=== PATIENT | female | born 1970 | race Caucasian/White ===

== ENCOUNTER 2017-10-06 06:54 | Day surgery (SDC) | payer OTHER ==
[2017-10-06] VITALS (12 sets, daily range): BP systolic 98–111; BP diastolic 60–71; PULSE 52–72; RESP 12–20; Ht 162.6 cm; Wt 75.3 kg
[~2017-10-06] VITALS: Ht 162.6 cm; Wt 75.3 kg
[2017-10-06] MEDS ORDERED: morphine (1 MG/ML) 10ML SYRINGE IV PRN ×3 (07:00)
[2017-10-06] MEDS ORDERED: DIPHENHYDRAMINE 50 MG INJ IV PRN (07:00)
[2017-10-06] MEDS ORDERED: hydrALAzine 20 MG INJ IV PRN (07:00)
[2017-10-06] MEDS ORDERED: MIDAZOLAM 1 MG/ML 2 ML INJ IV PRN (07:00)
[2017-10-06] MEDS ORDERED: FENTAnyl 50 MCG/ML VIAL IV PRN ×2 (07:00)
[2017-10-06] MEDS ORDERED: ONDANSETRON 4 MG INJ IV PRN ×2 (07:00→10:30)
[2017-10-06] MEDS ORDERED: LABETALOL HCL 20MG INJ IV PRN (07:00)
[2017-10-06] MEDS ORDERED: ATROPINE 1 MG/10 ML SYRINGE IV PRN (07:00)
[2017-10-06] MEDS ORDERED: HYDROmorphONE (0.2 MG/ML) 10ML SYG IV PRN ×3 (07:00)
[2017-10-06] MEDS ORDERED: OXYCODONE/ACETAMINOPHEN (5/325) TAB PO PRN ×2 (07:00)
[2017-10-06] MEDS ORDERED: EPHEDrine SULFATE 50 MG/5 ML SYG IV PRN (07:00)
[2017-10-06] MEDS ORDERED: MEPERIDINE 25 MG INJ IV PRN (07:00)
--- NOTE | 2017-10-06 08:43 | HPN ---
Date/Time of Note Date/Time of Note DATE: 10/06/17 TIME: 08:42 Interval H&P Admission Note Pt. seen H&P reviewed: No system changes POLINA MCKINLEY DO Oct 06, 2017 08:43
[2017-10-06] MEDS ORDERED: GLYCOPYRROLATE 1 MG INJ ONE (08:46)
[2017-10-06] MEDS ORDERED: ROCURONIUM 50 MG INJ ONE (08:46)
[2017-10-06] MEDS ORDERED: LIDOCAINE 2% (SDV) 5 ML INJ ONE (08:46)
[2017-10-06] MEDS ORDERED: PROPOFOL 20 ML ONE (08:47)
[2017-10-06] MEDS ORDERED: NEOSTIGMINE 3 MG/3 ML SYRINGE ONE (08:47)
[2017-10-06] MEDS ORDERED: MIDAZOLAM 1 MG/ML 2 ML INJ ONE (08:47)
[2017-10-06] MEDS ORDERED: FENTAnyl 50 MCG/ML VIAL ONE (08:47)
[2017-10-06] MEDS ORDERED: CEFAZOLIN 2 GM/50 ML (PMX) 50 ML IVPB SCH (09:00)
[2017-10-06] MEDS ORDERED: SUCCINYLCHOLINE CHLORIDE 100 MG/5 ML SYG IV ONE (09:01)
[2017-10-06] MEDS ORDERED: BUPIVACAINE 0.25% (MPF) 30 ML INJ ONE (09:01)
[2017-10-06] MEDS ORDERED: ONDANSETRON 4 MG INJ ONE (09:02)
[2017-10-06] MEDS ORDERED: DEXAMETHASONE 4 MG/ML 1 ML INJ ONE (09:02)
[2017-10-06] MEDS ORDERED: LABETALOL HCL 20MG INJ ONE (09:23)
--- NOTE | 2017-10-06 10:27 | OPR ---
Date/Time of Note Date/Time of Note DATE: 10/06/17 TIME: 10:20 Operative Report Procedure Date: Oct 06, 2017 Preoperative Diagnosis Biliary Colic and Chronic Cholecystitis Postoperative Diagnosis same Operation/Procedure Performed Laparoscopic Cholecystectomy Surgeon Adriana Mckinley DO, FACS [employer] Sm[employer] Pipe n/a Anesthesia Type: general Estimated Blood Loss: 0 - 10 ml's Transfusion none Specimen Gallbladder Grafts/Implants none Tubes/Drains None Complications none Pt Condition Post Procedure: stable Disposition: PACU Indications large gallstone impacted in the gallbladder neck with biliary colic and multiple episodes of cholecystitis previously, having surgery for cholecystectomy INFORMED CONSENT TO LAPAROSCOPIC CHOLECYSTECTOMY: Informed verbal consent obtained. Potential complications of surgery explained to Ondina Betancur including, but not limited to: scar formation, infection, bleeding, chronic pain, possible need for further surgery, recurrence. Ondina Betancur understands and agrees. All questions answered. Ondina Laure Pipe gave consent and desires to proceed with surgery. The usual risks, benefits and alternatives of surgery were discussed including, but not limited to, bowel, billiary, liver injury, infection, bleeding, scar, need for further surgery, allergy to medicines which may or may not have been previously taken, anesthesia, injury to nerves, arteries, veins or other adjacent organs or structures in the operative field, and the possibility of cardiac, pulmonary, GI , , neurologic, vascular, thromboembolic or other systemic complications. All risks versus benefits have been discussed at length allowing ample opportunity for patient to ask all questions and Ondina Betancur indicates they are all answered to his/her satisfaction. All risks and benefits have been discussed at length allowing ample opportunity for Ondina Betancur to ask all questions and [s]he indicated they are all answered to his/her satisfaction. These risks include, but are not limited to the possiblity of bleeding, infection, anesthesia risks, reaction to medications, trauma to the intra-abdominal organs, bowel injury, major vascular injury, conversion to laparoscopic or open surgery, robotic equipment failure or malfunction, inadvertent/unintended injury from instrumentation, including robotic equipment laparoscopic instruments when used, retained or recurrent stones, non-resolution of pain, CBD injury (~0.4% reported in literature), bile leak, DVT, PE, [place], stroke and even . Ondina Betancur appear(s) to understand these risks, and informed consent is confirmed Procedure Description PROCEDURE IN DETAIL: After informed consent was obtained and again verified with the patient, a time out procedure was performed. Antibiotics were given. Under general anesthesia, in supine position, Ondina Betancur's abdomen was prepped and draped in the usual sterile fashion. The skin was infiltrated with local anesthesia and an incision was made at the umbilicus. The fascia was retracted up with a clamp. Veress needle was placed into the peritoneal cavity, and saline test verified its placement. The peritoneal cavity was insuflated to adequate pressures without change in vitals or ventilation. The clamp and Veress were removed and a blunt port was placed without difficulty. The peritoneal cavity was inspected. Two additional 5 mm trocars were placed through incisions in the right upper abdomen and a 12 mm trocar was placed in the epigastrium under direct visualization. Laparoscopic instruments were inserted under direct visualization and guided to the operative site. The gallbladder was grasped and retracted cephalad. The hepatocystic triangle was dissected, using blunt and cautery dissection. Cystic plate was cleared. The critical view was obtained and the cystic duct and artery were clearly identified. The cystic duct was cleared circumferentially and clips were placed , distally and proximally. The cystic duct was then divided between the clips. The cystic artery was identified, cleared circumferentially, and had clips placed proximally and distally. The cystic artery was divided between the clips. The gallbladder was dissected free from the liver bed using electrocathery. Once freed from the liver, it was placed in a laparoscopic retrieval bad with camera guidance. The peritoneal cavity was inspected and hemostasis verified. The area was suctioned dry and hemostasis was confirmed. When this was completed, all fluids were evaluated with a suction catheter. The ports were checked for bleeding and hemostasis verified. The fascia of the 12 mm port site(s) was closed with heavy absorb-able suture. The peritoneal cavity CO2 was evacuated and all ports removed. The wounds were irrigated. The skin was closed with absorb-able suture, and skin glue. The patient tolerated the procedure well without any apparent immediate complication, and he was taken to recovery room in stable condition ADRIANA MCKINLEY DO Oct 06, 2017 10:27
[2017-10-06] MEDS ORDERED: KETOROLAC 30 MG INJ IV PRN (10:30)
[2017-10-06] MEDS ORDERED: HYDROCODONE/APAP (5/325) TAB PO PRN ×2 (10:30)
== END 2017-10-06 12:35 | disposition home or self-care (01) ==
LOC: SDS 06:54
PROVIDERS: ATTEND Surgery Trauma Surgery
DX: K80.44 Calculus of bile duct with chronic cholecystitis without obstruction (principal); F41.9 Anxiety disorder, unspecified; L71.9 Rosacea, unspecified; G43.909 Migraine, unspecified, not intractable, without status migrainosus
CPT/HCPCS: 47562; J1100; J1170; J2250; J2405; J2710; J3010